=== PATIENT | male | born 1990 | race Caucasian/White ===

== ENCOUNTER 2018-02-10 12:01 | Day surgery (SDC) | END 2018-02-10 14:37 | disposition home or self-care (01) ==

== ENCOUNTER 2018-04-13 03:19 | Emergency (ER) | END 2018-04-13 08:29 | disposition home or self-care (01) ==

== ENCOUNTER 2019-01-21 02:00 | Inpatient (IN) | payer OTHER ==
[~2019-01-21] VITALS: Ht 167.6 cm; Wt 72.7 kg
[2019-01-21] VITALS (26 sets, daily range): BP systolic 168–208; BP diastolic 89–119; PULSE 53–109; RESP 18–20; Ht 167.6 cm; Wt 72.7 kg
[~2019-01-21 02:00] MED LIST: ATEN-51 PO; BENA20TA4 PO; HYDR-3671 PO; OMEP40CA6 PO; TRAM50TA2 PO
[2019-01-21] MEDS ORDERED: LIDOCAINE/MYLANTA 40 ML BTL PO STA (02:37)
[2019-01-21] MEDS ORDERED: KETOROLAC 15 MG INJ IV STA (02:37)
[2019-01-21] MEDS ORDERED: BELLADONNA/PHENOBARBITAL TAB PO STA (02:37)
[2019-01-21] MEDS ORDERED: FAMOTIDINE 20 MG TAB PO STA (02:37)
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
[2019-01-21] MEDS ORDERED: ALBUTEROL 0.083% (NEB) 2.5 MG/3 ML AMP HHN ONE (03:44)
[2019-01-21] MEDS ORDERED: CA CHLORIDE 10% 10 ML SYRINGE IV ONE (04:00)
[2019-01-21] MEDS ORDERED: hydrALAzine 20 MG INJ IV ONE (04:00)
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
[2019-01-21] MEDS ORDERED: NACL 0.9% 3 ML SYG IV SCH (05:00)
[2019-01-21] MEDS ORDERED: ALBUTEROL/IPRATROPIUM (NEB) 3 ML AMP HHN PRN (05:00)
[2019-01-21] MEDS ORDERED: NA POLYST SULFON 15 GM/60 ML BTL PO ONE (05:00)
[2019-01-21] MEDS ORDERED: PANTOPRAZOLE (EC) 40 MG TAB PO SCH (06:00)
[2019-01-21] MEDS: traMADol 50 MG TAB PO PRN (06:17)
[2019-01-21] MEDS: BENAZEPRIL 20 MG TAB PO SCH (08:55)
[2019-01-21] MEDS ORDERED: MAGNESIUM HYDROXIDE 30ML CUP PO PRN (09:00)
[2019-01-21] MEDS ORDERED: MAGNESIUM HYDROXIDE 30ML CUP PO ONE (09:00)
[2019-01-21] MEDS ORDERED: ATENOLOL 25 MG TAB PO SCH (09:00)
[2019-01-21] MEDS ORDERED: NON-FORMULARY/PATIENT OWN MED (Omeprazole* 40 MG) PO SCH (09:00)
[2019-01-21] MEDS: HEPARIN 5,000 UNIT/1 ML VIAL SC SCH ×2 (09:03→21:00)
[2019-01-21] MEDS ORDERED: EPOETIN 4000 UNITS/1 ML INJ (ESRD) SC ONE (13:30)
--- NOTE | 2019-01-21 15:23 | CONS ---
DATE OF ADMISSION: 01/21/2019 DATE OF CONSULTATION: TYPE OF CONSULTATION: Nephrology. HISTORY OF PRESENT ILLNESS: A 28-year-old male with history of hypertension longstanding with end-stage kidney disease for which he is on hemodialysis at [facility] [place] next door. He has been on multiple medications mostly antihypertensive agents that have included atenolol, hydralazine, benazepril as well as minoxidil which are not listed here. The patient also takes Renvela, omeprazole and tramadol for pain. He presented to the emergency room with chief complaint of abdominal pain and diarrhea. The patient has been found to have hypertension and was therefore admitted to the hospital for further evaluation and treatment. The hospital records reveal white count 7.3, hematocrit 28. The potassium is 6.5, sodium 143, chloride 102, CO2 is 22, bicarbonate is 19. The patient has already been given Kayexalate and calcium chloride with improvement in his potassium levels. He is otherwise asymptomatic and is awaiting dialysis since he missed he was last dialyzed about 5 days ago. 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 This time, he has to go to [place] in a job and therefore could not dialyze. Rest of the past history includes multiple admissions at [facility] where his insurance was based at. PERSONAL HISTORY: The patient is , has 1 son. ALLERGIES: HAS NO KNOWN ALLERGIES. FAMILY HISTORY: He has 1 sister and 1 brother who also got a transplant. Parents are alive and well and they all hail from [facility]. They live in [place]. System Review: Neg for HEENT, Chest pain, cardia, GI, pulmonary or Vascular problems. He ;brandi with his common law & one son. REVIEW OF SYSTEMS: Rest of the systems was negative for any head, eyes, ears, nose and throat problems. The patient denies chest pain problem. Cramping of the abdomen seems to be one of medical problem. Please note, he has had kidney transplant before that rejected at [facility] where he has been followed for the potentially second transplant. PHYSICAL EXAMINATION: GENERAL: Reveals the patient to be pleasant Latin male who is in no acute distress. VITAL SIGNS: Blood pressure is elevated at 195/117. Weight is 72.7 kg. HEENT: Unremarkable. Eyes: Symmetric pupils and conjunctivae are clear. Sclerae are anicteric. Nose: Normal mucosa. Throat: Tongue is pale. No pharyngeal congestion. NECK: Supple. No JVD. No lymph node, thyroid enlargement. CHEST: Symmetrical. LUNGS: Clear. HEART: Regular rate, rhythm, S1, S2, unremarkable. ABDOMEN: Surgical scar rt loin from transplant is noted. Kidneys are not tender. 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 SKIN: Unremarkable. IMPRESSION: 1. History of hypertension poorly controlled, poor compliance. 2. End-stage kidney disease on HD with hyperkalemia. 3. Anemia. 4. Aneurysm AV Fistula PLAN: The patient will need more vigorous treatment for hypertension. The drugs therefore have to be adjusted. Hemodialysis was ordered. Potassium should improve once he goes back on a regular dialysis. Rest of the plan will be carried out. He will be followed at the [facility]. Dictated By: GRUPO ONEILL MD SD/NTS Conf#: [id number] DID#: [id number] CC: CHRIS SANDOVAL MD; JAMMIE RUDOLPH MD;*EndCC* MTDD
[2019-01-21] MEDS ORDERED: hydrALAzine 20 MG INJ IV PRN (16:30)
[2019-01-21] MEDS: MINOXIDIL 2.5 MG TAB PO SCH ×2 (16:39→21:00)
[2019-01-21] MEDS: LABETALOL 100 MG TAB PO SCH ×2 (17:59→20:35)
[2019-01-21] MEDS: SEVELAMER CARBONATE 800 MG TABLET PO SCH (17:59)
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
[2019-01-21] MEDS ORDERED: LACTULOSE 30ML CUP PO PRN (19:30)
[2019-01-21] MEDS: ACETAMINOPHEN 325 MG TAB PO PRN (19:44)
[2019-01-21] MEDS: POLYETHYLENE GLYCOL 17 GM PACKET NGT SCH (20:47)
[2019-01-22] VITALS (12 sets, daily range): BP systolic 133–162; BP diastolic 71–93; PULSE 61–85; RESP 17–18
[2019-01-22] MEDS: traMADol 50 MG TAB PO PRN ×2 (00:24→21:47)
[2019-01-22] MEDS: ACETAMINOPHEN 325 MG TAB PO PRN (06:40)
[2019-01-22] MEDS: BENAZEPRIL 20 MG TAB PO SCH (08:42)
[2019-01-22] MEDS: MINOXIDIL 2.5 MG TAB PO SCH ×2 (08:42→21:31)
[2019-01-22] MEDS: LABETALOL 100 MG TAB PO SCH ×2 (08:43→21:33)
[2019-01-22] MEDS: SEVELAMER CARBONATE 800 MG TABLET PO SCH ×3 (08:44→16:42)
[2019-01-22] MEDS: HEPARIN 5,000 UNIT/1 ML VIAL SC SCH ×2 (08:58→21:44)
[2019-01-22] MEDS: FAMOTIDINE 20 MG TAB PO SCH (09:00)
[2019-01-22] MEDS: SENNA/DOCUSATE NA (8.6MG/50MG) TAB PO SCH (09:00)
[2019-01-22] MEDS: POLYETHYLENE GLYCOL 17 GM PACKET NGT SCH ×2 (09:00→21:00)
[2019-01-22] MEDS ORDERED: ALBUMIN HUMAN 25% 100 ML IV PRN (10:00)
[2019-01-22] MEDS ORDERED: ALBUMIN HUMAN 25% 100 ML IV ONE (10:00)
[2019-01-22] MEDS: ONDANSETRON 4 MG INJ IV PRN ×2 (11:34→16:43)
--- NOTE | 2019-01-22 12:17 | PN ---
Date/Time of Note Date/Time of Note DATE: 01/22/19 TIME: 12:16 Assessment/Plan VTE Prophylaxis Risk score (from Nsg)>0 risk: 0 SCD applied (from Nsg): Yes Pharmacological prophylaxis: heparin Lines/Catheters IV Catheter Type (from Nrsg): Saline Lock Urinary Cath still in place: No Assessment/Plan Hospital Course SUBJECTIVE: Patient's blood pressure stable. OBJECTIVE: Physical Exam General: Adequately build 28 year-old male lying in bed in no apparent distress. HEENT: Normocephalic, atraumatic. Eyes: Anicteric sclerae, conjunctivae clear. ENT: Nasal septum midline, oral mucosa moist. Neck supple, no JVD noticed. Respiratory: Bilaterally clear breath sounds. No use of accessory muscles of respiration. No adventitious breath sounds. Cardiovascular: S1, S2 heard. Regular rate and rhythm. Abdomen: Soft, nontender, and nondistended. Bowel sounds positive in all 4 quadrants. Genitourinary: Deferred. Extremities: No cyanosis, no clubbing, no edema. Peripheral pulses palpable. Neurologic: Cranial nerves II through XII grossly intact. The patient is awake, alert, and oriented. Skin: Normal skin turgor. No skin rashes. Labs & Vitals per chart ASSESSMENT & PLAN 28-year-old male with past medical history of end-stage renal disease on hemodialysis, hypertension, status post failed renal transplant, and noncompliance with medications who came to the emergency room with chief complaint of abdominal pain, who was also noticed to have underlying hypertensive emergency. The patient CT scan of the abdomen and pelvis was showing hepatomegaly with heterogeneous hepatic attenuation, mild ascites, gallbladder sludge and/or stones without gallbladder distention. The patient was admitted to inpatient setting for further treatment and evaluation. 1. Abdominal pain. -Etiology unclear. -CT scan showing no significant findings. -LFTs within normal limits other than elevated alkaline phosphatase. 2. Hypertensive urgency. -Continue antihypertensives. 3. End-stage renal disease on hemodialysis. -Being followed by nephrology. 4. Hyperkalemia. -Continue hemodialysis as per nephrology. 5. 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 -The patient currently on transplant list. 6. Normocytic anemia. -Probably anemia of chronic kidney disease -Monitor H&H closely. 7. Fluids, electrolytes, and nutrition. -Renal diet. 8. DVT prophylaxis -Subcutaneous heparin. 9. Plan. -Continue hemodialysis for correction of hyperkalemia. -Obtain optimal blood pressure control. -Await clinical improvement. The patient was seen in collaboration with . Result Diagram: 01/22/1960401/22/19 0605 Results 24hrs Laboratory Tests Test 01/21/19 21:14 01/22/19 06:05 Potassium Level 4.2 # 5.9 H White Blood Count 5.7 # Red Blood Count 3.01 L Hemoglobin 9.3 L Hematocrit 28.7 L Mean Corpuscular Volume 95.3 Mean Corpuscular Hemoglobin 30.9 Mean Corpuscular Hemoglobin Concent 32.4 Red Cell Distribution Width 14.6 H Platelet Count 144 Mean Platelet Volume 11.1 H Immature Granulocytes % 0.300 Neutrophils % 75.6 Lymphocytes % 9.6 L Monocytes % 8.6 Eosinophils % 4.9 Basophils % 1.0 Nucleated Red Blood Cells % 0.0 Immature Granulocytes # 0.020 Neutrophils # 4.3 Lymphocytes # 0.6 L Monocytes # 0.5 Eosinophils # 0.3 Basophils # 0.1 Nucleated Red Blood Cells # 0.0 Sodium Level 139 Chloride Level 95 L Carbon Dioxide Level 27 Anion Gap 17 H Blood Urea Nitrogen 58 #H Creatinine 8.68 #H Est Glomerular Filtrat Rate mL/min 7 L Glucose Level 103 Hemoglobin A1c 5.3 Calcium Level 9.0 Magnesium Level 2.2 Total Bilirubin 0.4 Direct Bilirubin 0.00 Indirect Bilirubin 0.4 Aspartate Amino Transf (AST/SGOT) 33 Alanine Aminotransferase (ALT/SGPT) 58 Alkaline Phosphatase 136 H Total Protein 6.7 Albumin 3.8 Globulin 2.90 Albumin/Globulin Ratio 1.31 Triglycerides Level 113 Cholesterol Level 168 LDL Cholesterol, Calculated 93 HDL Cholesterol 52 Cholesterol/HDL Ratio 3.2 Exam/Review of Systems Exam Vitals Vital Signs Date Temp Pulse Resp B/P (MAP) Pulse Ox O2 O2 Flow FiO2 Time Delivery Rate 01/22/19 97.6 61 18 162/93 98 11:23 (116) 01/21/19 Room Air 16:35 01/21/19 93 03:52 Intake and Output 01/21/19 01/21/19 01/22/19 1515:00 23:00 07:00 IntakeIntake Total 500 ml 500 ml OutputOutput Total 4300 ml BalanceBalance -3800 ml 500 ml Results Results 24hrs Laboratory Tests Test 01/21/19 21:14 01/22/19 06:05 Potassium Level 4.2 # 5.9 H White Blood Count 5.7 # Red Blood Count 3.01 L Hemoglobin 9.3 L Hematocrit 28.7 L Mean Corpuscular Volume 95.3 Mean Corpuscular Hemoglobin 30.9 Mean Corpuscular Hemoglobin Concent 32.4 Red Cell Distribution Width 14.6 H Platelet Count 144 Mean Platelet Volume 11.1 H Immature Granulocytes % 0.300 Neutrophils % 75.6 Lymphocytes % 9.6 L Monocytes % 8.6 Eosinophils % 4.9 Basophils % 1.0 Nucleated Red Blood Cells % 0.0 Immature Granulocytes # 0.020 Neutrophils # 4.3 Lymphocytes # 0.6 L Monocytes # 0.5 Eosinophils # 0.3 Basophils # 0.1 Nucleated Red Blood Cells # 0.0 Sodium Level 139 Chloride Level 95 L Carbon Dioxide Level 27 Anion Gap 17 H Blood Urea Nitrogen 58 #H Creatinine 8.68 #H Est Glomerular Filtrat Rate mL/min 7 L Glucose Level 103 Hemoglobin A1c 5.3 Calcium Level 9.0 Magnesium Level 2.2 Total Bilirubin 0.4 Direct Bilirubin 0.00 Indirect Bilirubin 0.4 Aspartate Amino Transf (AST/SGOT) 33 Alanine Aminotransferase (ALT/SGPT) 58 Alkaline Phosphatase 136 H Total Protein 6.7 Albumin 3.8 Globulin 2.90 Albumin/Globulin Ratio 1.31 Triglycerides Level 113 Cholesterol Level 168 LDL Cholesterol, Calculated 93 HDL Cholesterol 52 Cholesterol/HDL Ratio 3.2 Medications Medication Current Medications IV Flush (NS 3 ml) 3 ml PER PROTOCOL IV ; Start 01/21/19 at 05:00 Ondansetron HCl (Zofran Inj) 4 mg Q6H PRN IV NAUSEA/VOMITING Last administered on 01/22/19at 11:34; Admin Dose 4 MG; Start 01/21/19 at 05:00 Acetaminophen (Tylenol Tab) 650 mg Q6H PRN PO .PAIN 1-3 OR TEMP Last administered on 01/22/19at 06:40; Admin Dose 650 MG; Start 01/21/19 at 05:00 Heparin Sodium (Porcine) (Heparin (5000 Units/1ml)) 5,000 unit Q12 SC Last administered on 01/22/19at 08:58; Admin Dose 5,000 UNIT; Start 01/21/19 at 09:00 Albuterol/ Ipratropium (Duoneb) 3 ml Q2H RESP THERAPY PRN HHN SHORTNESS OF BREATH; Start 01/21/19 at 05:00 Benazepril HCl (Lotensin) 20 mg DAILY PO Last administered on 01/22/19 08:42; Admin Dose 20 MG; Start 01/21/19 at 09:00 Tramadol HCl (Ultram) 50 mg Q6 PRN PO PAIN Last administered on 01/22/19 00:24; Admin Dose 50 MG; Start 01/21/19 at 05:00 Epoetin Ralph (Epogen (Esrd)) 4,000 units MoWeFr@17 SC ; Start 01/22/19 at 17:00 Minoxidil (Loniten) 5 mg BID PO Last administered on 01/22/19 08:42; Admin Dose 5 MG; Start 01/21/19 at 14:30 Sevelamer Carbonate (Renvela) 2,400 mg WITH MEALS PO Last administered on 01/22/19 08:44; Admin Dose 2,400 MG; Start 01/21/19 at 17:55 Labetalol HCl (Normodyne) 100 mg BID PO Last administered on 01/22/19 08:43; Admin Dose 100 MG; Start 01/21/19 at 16:30 Hydralazine HCl (Apresoline) 20 mg Q6H PRN IV ELEVATED SYSTOLIC BP Last administered on 01/21/19at 20:47; Admin Dose 20 MG; Start 01/21/19 at 16:30 Hydralazine HCl (Apresoline) 75 mg TID PO Last administered on 01/22/19 08:43; Admin Dose 75 MG; Start 01/21/19 at 21:00 Famotidine (Pepcid) 20 mg DAILY PO ; Start 01/22/19 at 09:00 Polyethylene Glycol (Miralax) 17 gm BID NGT Last administered on 01/21/19at 20:47; Admin Dose 17 GM; Start 01/21/19 at 21:00 Senna/Docusate Sodium (Senokot-S) 2 tab AM PO ; Start 01/22/19 at 09:00 Lactulose (Enulose) 20 gm BID PRN PO CONSTIPATION; Start 01/21/19 at 19:30 DEEPA LIN NP Jan 22, 2019 12:17
[2019-01-22] MEDS ORDERED: NA POLYST SULFON 15 GM/60 ML BTL PO ONE (15:30)
[2019-01-22] MEDS ORDERED: EPOETIN 4000 UNITS/1 ML INJ (ESRD) SC SCH (17:00)
[2019-01-22] MEDS ORDERED: CALCIUM GLUCONATE 10% 2 GM in DEXTROSE 5% 100 ML IVPB ONE (17:30)
--- NOTE | 2019-01-22 20:45 | QN ---
Documentation Comment Pt is feeling a lot better. Afebrile, BP has improved. K is also improved. He feels well enough to go home. He's advised to follow renal diet with K restriction & return to [facility] dialysis in AM per his scheduled treatment. I have advise the dialysis ctyr re his status GRUPO ONEILL MD Jan 22, 2019 20:45
[2019-01-23] VITALS (25 sets, daily range): BP systolic 119–157; BP diastolic 63–82; PULSE 58–71; RESP 16–19
[2019-01-23] MEDS: SEVELAMER CARBONATE 800 MG TABLET PO SCH ×2 (07:44→12:46)
[2019-01-23] MEDS: FAMOTIDINE 20 MG TAB PO SCH (08:57)
[2019-01-23] MEDS: MINOXIDIL 2.5 MG TAB PO SCH (08:57)
[2019-01-23] MEDS: LABETALOL 100 MG TAB PO SCH (09:00)
[2019-01-23] MEDS: BENAZEPRIL 20 MG TAB PO SCH (09:00)
[2019-01-23] MEDS: SENNA/DOCUSATE NA (8.6MG/50MG) TAB PO SCH (09:00)
[2019-01-23] MEDS: POLYETHYLENE GLYCOL 17 GM PACKET NGT SCH (09:00)
[2019-01-23] MEDS: HEPARIN 5,000 UNIT/1 ML VIAL SC SCH (09:01)
--- NOTE | 2019-01-23 12:26 | QN ---
Documentation Comment Pt did not get HD last nigh as ordered, instead he got it this AM. K is already down this am Spoke to him once again re controlling K intake. OK for discharge GRUPO ONEILL MD Jan 23, 2019 12:26
[2019-01-23] MEDS ORDERED: LABE100T7 PO (15:08)
[2019-01-23] MEDS ORDERED: HYDR-3671 PO (15:08)
[2019-01-23] MEDS ORDERED: MINO2.5T16 PO (15:08)
[2019-01-23] MEDS ORDERED: SEVE800T7 PO (15:12)
--- NOTE | 2019-01-23 15:14 | PDOCDIS ---
Discharge Instructions CONDITION [id number] Patient Condition: [id number] Stable HOME CARE INSTRUCTIONS: [id number] Special Diet: [id number] Low potassium OTHER ORDERS: Other Orders: 1. Take a low potassium diet. 2. Take medications as per prescription. 3. Follow-up with your hemodialysis clinic as scheduled. 4. Resume activities as tolerated. DEEPA LIN NP Jan 23, 2019 15:14
--- NOTE | 2019-01-23 15:23 | DS ---
Date/Time of Note Date/Time of Note DATE: 01/23/19 TIME: 15:21 Discharge Summary Admission/Discharge Info Admit Date/Time Jan 21, 2019 at 03:58 Discharge Date/Time Discharge Diagnosis 1. Abdominal pain. 2. Hypertensive urgency. 3. End-stage renal disease on hemodialysis. 4. Hyperkalemia. 5. 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 6. Normocytic anemia. 7. Noncompliance with medications and hemodialysis. Patient Condition: Stable Consults 1. Deepak New MD, Nephrology. Procedures CT Abdomen & Pelvis IMPRESSION: 1. 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 2. Mild ascites. 3. Gallbladder sludge and/or stones without gallbladder distension. 4. Renal osteodystrophy. 5. Cardiomegaly. 6. Marked atrophy of the bilateral minto kidneys consistent with end-stage halina l disease. Nonobstructing calculi of the transplanted right pelvic kidney. Hx of Present Illness This is a 28-year-old male with past medical history of end-stage renal disease on hemodialysis, hypertension, status post failed renal transplant, and noncompliance with medications who came to the emergency room with chief complaint of abdominal pain, who was also noticed to have underlying hypertensive emergency. The patient CT scan of the abdomen and pelvis was showing hepatomegaly with heterogeneous hepatic attenuation, mild ascites, gallbladder sludge and/or stones without gallbladder distention. The patient was admitted to inpatient setting for further treatment and evaluation. Hospital Course Etiology of the patient's abdominal pain remains unclear. The patient's abdominal pain resolved on its own. The patient's CT scan of the abdomen and pelvis was negative for any significant findings. The patient's LFTs were within normal limits. The patient was started on appropriate antihypertensives for his underlying hypertension. The patient's blood pressure was lowered gradually to obtain optimal blood pressure control. The patient was maintained on labetalol, hydralazine, benazepril, and minoxidil. The patient had significant hyperkalemia secondary to missed hemodialysis. The patient had multiple hemodialysis sessions with improvement in the patient's underlying hyperkalemia. The patient was monitored on telemetry floor to evaluate for any underlying cardiac arrhythmias. The patient was advised on a low potassium diet. Patient has a history of renal transplant and rejection in the past. The patient is currently on a transplant list. The patient has underlying normocytic anemia secondary to underlying chronic kidney disease. The patient was maintained on Epogen during the hospitalization. The patient had a stable hospital course. The patient's potassium has been normalized. The patient's blood pressure is well controlled. The patient's abdominal pain has r esolved. Therefore, the patient was cleared by nephrology to be discharged home. Discharge Instructions 1. Take a low potassium diet. 2. Take medications as per prescription. 3. Follow-up with your hemodialysis clinic as scheduled. 4. Resume activities as tolerated. The patient verbalized understanding of his discharge instructions. At this time I would like to thank Dr. New for seeing the patient and providing clinical recommendations. The patient was seen in collaboration with . Home Meds Active Scripts Sevelamer Carbonate* (Renvela*) 800 Mg Tablet, 2400 MG PO WITH MEALS for 30 Days, TAB Prov:DEEPA LIN NP 01/23/19 Minoxidil* (Lonitin*) 2.5 Mg Tab, 5 MG PO BID, #60 TAB Prov:DEEPA LIN NP 01/23/19 Labetalol Hcl* (Labetalol Hcl*) 100 Mg Tablet, 100 MG PO BID, #60 TAB Prov:DEEPA LIN NP 01/23/19 Hydralazine Hcl* (Hydralazine Hcl*) 25 Mg Tab, 75 MG PO TID, #90 TAB Prov:DEEPA LIN NP 01/23/19 Tramadol HCl (Tramadol HCl) 50 Mg Tablet, 50 MG PO Q6 PRN for PAIN, #10 TAB Prov:CHERELLE MOORE MD 04/13/18 Reported Medications Omeprazole* (Omeprazole*) 40 Mg Capsule., 40 MG PO DAILY, CAP 08/05/15 Benazepril Hcl* (Benazepril Hcl*) 20 Mg Tablet, 20 MG PO DAILY, TAB 08/05/15 Discontinued Reported Medications Atenolol* (Atenolol*) 25 Mg Tablet, 25 MG PO DAILY, #30 TAB 02/10/18 Hydralazine Hcl* (Hydralazine Hcl*) 25 Mg Tab, 25 MG PO BID, TAB 08/05/15 Follow-up Plan The patient to follow-up with his primary care physician and hemodialysis clinic. The Primary Care Provider Not On Staff Doctor Time spent on discharge: > 30 minutes Pending Labs Laboratory Tests Test 01/23/19 10:37 White Blood Count 5.7 10^3/ul (4.8-10.8) Red Blood Count 3.13 10^6/ul (4.70-6.10) Hemoglobin 9.5 g/dl (14.0-18.0) Hematocrit 28.6 % (42.0-52.0) Mean Corpuscular Volume 91.4 fl (82.0-101.0) Mean Corpuscular Hemoglobin 30.4 pg (29.0-33.0) Mean Corpuscular Hemoglobin Concent 33.2 g/dl (32.0-37.0) Red Cell Distribution Width 14.6 % (11.5-14.5) Platelet Count 168 10^3/UL (140-415) Mean Platelet Volume 9.9 fl (7.4-10.4) Immature Granulocytes % 0.200 % (0.001-0.429) Neutrophils % 78.5 % (39.0-77.0) Lymphocytes % 9.5 % (15.0-51.0) Monocytes % 7.9 % (0.0-11.0) Eosinophils % 3.0 % (0.0-7.0) Basophils % 0.9 % (0.0-2.0) Nucleated Red Blood Cells % 0.0 /100WBC (0.0-0.0) Immature Granulocytes # 0.010 10^3/ul (0.0-0.031) Neutrophils # 4.5 10^3/ul (1.6-7.5) Lymphocytes # 0.5 10^3/ul (0.8-2.9) Monocytes # 0.5 10^3/ul (0.3-0.9) Eosinophils # 0.2 10^3/ul (0.0-0.5) Basophils # 0.1 10^3/ul (0.0-0.1) Nucleated Red Blood Cells # 0.0 10^3/ul (0.0-0.0) Sodium Level 136 mmol/L (135-144) Potassium Level 3.8 mmol/L (3.5-5.1) Chloride Level 93 mmol/L (97-110) Carbon Dioxide Level 31 mmol/L (21-31) Anion Gap 12 (5-13) Blood Urea Nitrogen 31 mg/dl (7-20) Creatinine 5.19 mg/dl (0.61-1.24) Est Glomerular Filtrat Rate mL/min 13 mL/min (>60) Glucose Level 91 mg/dl (70-220) Calcium Level 9.0 mg/dl (8.4-10.2) Phosphorus Level 3.3 mg/dl (2.5-4.9) Magnesium Level 1.9 mg/dl (1.7-2.5) DEEPA LIN NP Jan 23, 2019 15:23
== END 2019-01-23 16:50 | disposition home or self-care (01) | DRG 391 ==
LOC: E/R 02:00 → TEL 03:58
PROVIDERS: ADMIT Internal Medicine; ATTEND Internal Medicine
PROC: 5A1D70Z Performance of Urinary Filtration, Intermittent, Less than 6 Hours Per Day (ICD-10-PCS; principal; 2019-01-21)
DX: R10.13 Epigastric pain (principal); N18.6 End stage renal disease; I16.1 Hypertensive emergency; Z94.0 Kidney transplant status; I12.0 Hypertensive chronic kidney disease with stage 5 chronic kidney disease or end stage renal disease; E87.5 Hyperkalemia; R10.12 Left upper quadrant pain; Z99.2 Dependence on renal dialysis; E83.19 Other disorders of iron metabolism; R16.0 Hepatomegaly, not elsewhere classified; R19.7 Diarrhea, unspecified; Z91.15 Patient's noncompliance with renal dialysis; Z91.14 Patient's other noncompliance with medication regimen
CPT/HCPCS: 36415; 74176; 80048; 80053; 80061; 80307; 83036; 83690; 83735; 84100; 84132; 84484; 85025; 87081; 87340; 90935; 93005; 94644; 96374; 96375; J0360; J0610; J1644; J1885; J2405; Q4081